=== PATIENT | female | born 1955 | race Caucasian/White ===

== ENCOUNTER 2020-08-10 18:00 | Emergency (ER) | payer OTHER, SELFPAY ==
[2020-08-10 18:10] VITALS: BP 170/82; PULSE 105; RESP 18; TEMP 36.3; O2SAT 99
--- NOTE | 2020-08-10 18:16 | ECG_ITS ---
Measurements Intervals [place] Rate: 99 P: 49 HI: 213 QRS: -1 QRSD: 98 T: 76 QT: 362 QTc: 465 Interpretive Statements SINUS RHYTHM WITH FIRST DEGREE AV BLOCK NONSPECIFIC T-WAVE ABNORMALITY- HIGH LATERAL LEADS BASELINE WANDER- I, II, III ABNORMAL ECG Electronically Signed On 08-11-2020 9:54:02 CDT by Oscar Hurt D.O.
--- NOTE | 2020-08-10 18:16 | ED.NAVMDI ---
HPI - Nausea/Vomiting/Diarrhea General Chief complaint: Nausea/Vomiting/Diarrhea Stated complaint: nausea Time Seen by Provider: 08/10/20 18:16 Source: patient and RN notes reviewed Mode of arrival: ambulatory Limitations: no limitations History of Present Illness HPI Narrative: 64-year-old female presents to the [facility] with complaints of Acid reflux that started at 1000 today which became worse and started with nausea, vomiting, feeling sweaty that started around lunchtime today. Reports epigastric pain. patient states that she was fine this morning. States she has had increased weakness and needed her to come pick her up in [place]. Patient has a history of hypertension and high cholesterol. Mom (65) and dad (68) both had heart attacks mid 60s. Patient states that she is concerned for cardiac issues due to her parents history and her history. Patient also states that she was hospitalized and intubated for a month due to Covid. Denies fevers. No treatment prior to arrival Patient does have an elevated blood pressure Related Data Home Medications Medication Instructions Recorded Confirmed amlodipine 08/10/20 apixaban [Eliquis] mg 08/10/20 ascorbic acid (vitamin C) See Rx Instructions .ROUTE .COMPLEX 08/10/20 08/10/20 fenofibrate mg 08/10/20 fiber See Rx Instructions .ROUTE .COMPLEX 08/10/20 08/10/20 flaxseed See Rx Instructions .ROUTE .COMPLEX 08/10/20 08/10/20 pravastatin 08/10/20 ropinirole mg 08/10/20 Allergies Allergy/AdvReac Type Severity Reaction Status Date / Time No Known Allergies Allergy Verified 08/10/20 18:20 Review of Systems Review of Systems: Narrative: CONSTITUTIONAL: Denies fever, chills, or sweats. EYES: Denies visual changes, redness, or discharge. CARDIOVASCULAR: Denies chest pain, palpitations. Mild edema bilaterally RESPIRATORY: Denies cough or dyspnea. GASTROINTESTINAL: Reports epigastric pain along with nausea, vomiting. Denies diarrhea. GENITOURINARY: Denies dysuria or hematuria. SKIN: Denies rash or itching. MUSCULOSKELETAL: Denies back pain, joint pain, or myalgia. All other systems reviewed are negative, except as documented in HPI. [facility] Past Medical History Medical History COVID-11 January 2020, intubation required High cholesterol Hypertension Family History Family History Mother Acute myocardial infarction, Onset Age: 65 Father Acute myocardial infarction, Onset Age: 68 Comments Patient reports blood clots post Covid At the time of my signature, I reviewed and agree with the nursing past medical, surgical, social, and family history. There is no relevant family history pertinent to the patient complaint. Exam Narrative: Exam Narrative: GENERAL: This is a well-nourished, well-developed patient, in no apparent distress. Obese HEAD: normocephalic, atraumatic. EYES: PERRL. EARS: External ears normal NECK: Neck supple, non-tender without lymphadenopathy. CARDIOVASCULAR: Tachycardic rate and rhythm. RESPIRATORY: Clear but diminished to auscultation bilaterally. GASTROINTESTINAL: Abdomen soft, non-tender, nondistended. SKIN: warm, Dry, intact with no suspicious lesions or rash, good texture and turgor. NEURO: awake, alert, and oriented to person, place and time. There were no obvious focal neurologic abnormalities. EXTREMITIES: No joint tenderness or effusion. trace edema noted. BACK: Nontender without deformity. Course Vital Signs Vital signs: Vital Signs Temperature 97.3 F L 08/10/20 18:10 Pulse Rate 105 H 08/10/20 18:10 Respiratory Rate 18 08/10/20 18:10 Blood Pressure 170/82 H 08/10/20 18:10 Pulse Oximetry 99 08/10/20 18:10 Temperature 97.3 F L 08/10/20 18:10 Pulse Rate 105 H 08/10/20 18:10 Respiratory Rate 18 08/10/20 18:10 Blood Pressure 170/82 H 08/10/20 18:10 Pulse Oximetry 99 08/10/20 18:10
== END 2020-08-10 18:30 | disposition short-term general hospital (02) ==
PROVIDERS: Emergency Provider Nurse Practitioner
DX: R10.13 Epigastric pain (principal); R11.2 Nausea with vomiting, unspecified; E78.00 Pure hypercholesterolemia, unspecified; I10 Essential (primary) hypertension; Z86.16 Personal history of COVID-19
CPT/HCPCS: 93005; 99213; G0463